=== PATIENT | female | born 1960 ===

== ENCOUNTER 2016-12-31 18:09 | Inpatient (IN) ==
[2016-12-31] MEDS ORDERED: ASPIRIN 325 MG TABLET PO STA (18:24)
[2016-12-31] MEDS ORDERED: methylPREDNISolone SOD SUC 125 MG/2 ML VIAL IV STA (18:27)
[2016-12-31] MEDS ORDERED: KETOROLAC 30 MG/1 ML VIAL IV STA (18:27)
[2016-12-31] MEDS ORDERED: ONDANSETRON 4 MG/2 ML VIAL IV STA (18:27)
[2016-12-31] MEDS ORDERED: ALBUTEROL/IPRATROPIUM 3 ML NEB RESP TX STA (18:27)
[2016-12-31] MEDS ORDERED: LEVOFLOXACIN INJ 750 MG in PREMIX 1 EACH IV STA (18:27)
--- NOTE | 2016-12-31 18:29 | EKG Report ---
Stationary ECG Study [facility] ER Test Date: 12/31/2016 6:20:29 PM Pat Name: MEHRAN DOWLING Department: Room: 540 Gender: F Auto Body Painter: : 1960 Requested by: Jared Bustillos Order Number: [id number] Reading MD: PALOMA HARE Intervals [place] Rate: 70 P: 35 UT: 158 QRS: 5 QRSD: 75 T: 38 QT: 427 QTc: 448 Interpretive Statements SINUS RHYTHM Electronically Signed On 01-01-17 18:59:58 CDT by PALOMA HARE [email or web address]
[2016-12-31] MEDS ORDERED: KETOROLAC 30 MG/1 ML VIAL ONE (18:33)
[2016-12-31] MEDS ORDERED: ASPIRIN 325 MG TABLET ONE (18:33)
[2016-12-31] MEDS ORDERED: methylPREDNISolone SOD SUC 125 MG/2 ML VIAL ONE (18:33)
[2016-12-31] MEDS ORDERED: ONDANSETRON 4 MG/2 ML VIAL ONE (18:33)
--- NOTE | 2016-12-31 18:35 | Emergency Department Note ---
Arrival - Arrival Chief Complaint: Upper Respiratory ED Nursing Triage Note: pt was dx with pneumonia and flu yesterday. pt went to [facility] today c/o cough and pain in chest Mode of Arrival: Stretcher Limitations: No Limitations Source: Patient Time Seen by Provider: 12/31/16 18:23 - History of Present Illness HPI Narrative: This 56-year-old female was transferred from [facility] for further evaluation of persistent respiratory complaints after being diagnosed with pneumonia and flu yesterday. Because of the lack of laboratory machines functioning she was transferred here for completion of workup. The patient states she never filled the medication given her yesterday when she had the diagnoses made. She currently complains of body aches, headache, subjective chills and fever, and intermittent dry cough. She denies nausea, vomiting, shortness of breath, chest pain, or purulence. She is in no acute medical distress at this time. Onset (ago): day(s) (This patient presents 2 days post onset of symptoms.) Consistency: constant Severity: moderate Allergies/Adverse Reactions: Allergies Allergy/AdvReac Type Severity Reaction Status Date / Time Penicillins Allergy Mild RASH Verified 12/30/15 12:33 Home Medications: Home Medications Medication Instructions Recorded Confirmed Type Furosemide Tab [Lasix Tab] 40 mg PO DAILY #30 tablet 12/22/15 12/31/16 Rx Spironolactone [Aldactone] 25 mg PO BID #60 tablet 12/22/15 12/31/16 Rx Bismuth Subsalicylate Liquid 30 ml PO Q4H 05/06/16 12/31/16 History [Pepto Bismol Liquid] Ondansetron Tab [Zofran Tab] 4 mg PO Q4-6H PRN 05/06/16 12/31/16 History predniSONE TAB [PredniSONE] 10 mg PO DAILY 05/06/16 12/31/16 History Azithromycin Liquid [Zithromax 6.5 ml PO DAILY 12/31/16 12/31/16 History Liquid] Insulin Detemir [Levemir] 0 unit SUBCUT DAILY PRN 12/31/16 12/31/16 History Oseltamivir Cap [Tamiflu Cap] 75 mg PO BID 12/31/16 12/31/16 History Pantoprazole Tab [Protonix Tab] 40 mg PO AC SUPPER 12/31/16 12/31/16 History Potassium Chloride Cap/Tab [K Dur] 20 meq PO BID 12/31/16 12/31/16 History Review of System - Review of System 12 point system: reviewed and no additional remarkable complaints except as stated - Review of System Constitutional: Present: as per HPI Respiratory: Present: as per HPI Cardiovascular: Present: as per HPI Gastrointestinal: Present: as per HPI Musculoskeletal: Present: as per HPI Medical,Surgical,& Family Hx - Medical History Cardio: History of: Hypertension Comment Only: Cardiovascular Problems (denies any) Neurology: No history of: Brain Aneurysm, Cerebrovascular Accident, Migraine, Seizures Endocrine: No history of: Diabetes Mellitus (NIDDM) Respiratory: No history of: Respiratory Problems (denies) Gastrointestinal: No history of: Bowel Obstruction Musculoskeletal: History of: Back/Neck Problems, Musculoskeletal Problems (back surgery) - Surgical History Cardiac Surgeries: Patient Denies: Femoral-Popliteal Bypass Graft, Cardiac Catheterization, Cardiac Surgery, Carotid Endarterectomy Thoracic Surgeries: Patient denies;: Organ Transplant, Lobectomy Neurologic Surgeries: Patient denies: Brain Aneurysm, Neurologic Surgery HEENT Surgeries: Patient denies: Carotid Endarterectomy, Eye Surgery, Tonsilectomy & Adenoidectomy Abdominal Surgeries: Surgical HX of: Cholecystectomy Reproductive Surgeries: Surgical HX of;: Section (X3), Hysterectomy Patient denies;: Genitourinary Surgery Orthopedic Surgeries: Surgical HX of;: Spinal Surgery (BACK SURGERY X2 OVER 10 YRS AGO) - Family History Family History: Reports;: Family Cancer (MOTHER), Family Diabetes (MOTHER, BROTHER SISTERS) - Social History Smoking Status: Current every day smoker Frequency of Alcohol Use: None Type of Drug Use: None Exam Physical Examination: GENERAL: Well developed, well nourished female in no acute distress. HEENT: Normocephalic. No trauma. Moist mucous membranes. EOMI. PERRLA. ENT: Nasal mucosa erythema and edema NECK: Supple. No adenopathy. CARDIAC: Regular. No murmurs. Heart rate 70 CHEST: Scattered expiratory rhonchi. No respiratory distress. O2 sat 97% ABDOMEN: Soft. Nontender. Active bowel sounds. EXTREMITIES: No trauma. Normal ROM. No pedal edema. SKIN: No diaphoresis. No rash. NEURO: Alert. Neuro intact. No focal deficits. Vital Signs: Vital Signs Temperature 98.3 F 12/31/16 18:13 Pulse Rate 66 12/31/16 18:40 Respiratory Rate 32 H 12/31/16 18:40 Blood Pressure 101/57 12/31/16 18:13 O2 Sat by Pulse Oximetry 100 12/31/16 18:40 Course - Reevaluation(s) Reevaluation #1: Advised patient with her blood counts and evolving chest x-ray she needed hospitalization for further evaluation treatment. - Consultations Consultation #1: Discussed with Dr. Tovar, hospitalist, who will admit for further evaluation treatment Results - Labs CBC & BMP: 12/31/16 18:47 12/31/16 18:47 Labs: I reviewed the laboratory noted the leukopenia and thrombocytopenia associated with a mild anemia as well as diffuse mild LFT increases. - Impressions EKG: Sinus rhythm at 70 with normal IL interval and QRS duration. Normal STDs. Normal EKG. - Diagnostic Findings Procedure: Chest x-ray: image reviewed by me, report reviewed by me (Large right -sided pneumonia beginning to fluff out) Disposition Clinical Impression: Right chest pneumonia, Leukopenia, Thrombocytopenia Case discussed with: patient Disposition: Still a Patient Condition: Guarded Time of Disposition: 19:47
--- NOTE | 2016-12-31 18:54 | XRay Report ---
History is chest pain Comparison 12/31/2016 Heart and vessels are mildly enlarged There are mildly increasing reticular nodular and hazy bilateral pulmonary opacities mildly more pronounced on the right No more focal consolidation is seen Impression: Mildly increasing right greater than left infiltrates versus asymmetric edema PROCEDURE INTERPRETED AT [facility] DEPARTMENT OF RADIOLOGY Final Report Signed by: Dr. Afia Law
[2016-12-31 18:56] LABS: Hematocrit 36.2 VOL% (35.7-47.0); Hemoglobin 12.8 GM/DL (12.0-16.0); Immature Granulocytes % 0.9 %; Immature Granulocytes Absolute 0.02 #; Lymphocytes # 0.8 10*3/uL (1.4-4.0); Lymphocytes % 39.3 % (21.3-54.2); Mean Corpuscular HGB Conc 35.4 GM/DL (32-36); Mean Corpuscular Hemoglobin 34 PG (27-34); Mean Corpuscular Volume 94.8 FL (87-102); Mean Platelet Volume 12.5 FL (9.6-12.0); Monocytes # 0.3 10*3/uL (0.11-0.8); Monocytes % 11.7 % (1.7-12.7); Neutrophils % 48.1 % (38.7-73.9); Red Blood Count 3.82 MC/CUMM (3.8-5.5); Red Cell Distribution Width 14.1 % (9.3-17.3); White Blood Count 2.1 T/CUMM (4-12)
[2016-12-31 19:02] LABS: Platelet Count 33 T/CUMM (130-400)
[2016-12-31 19:07] LABS: INR 1.3; PT Patient Result 13.9 SECS
[2016-12-31 19:32] LABS: Bilirubin,Total 2.6 MG/DL (0.2-1.0); Calcium 7.1 MG/DL (8.5-10.1); Osmolality,Calculated 276.4 MOS/KG (273-304); Potassium 3.4 MMOL/L (3.5-5.1); Thyroid Stimulating Hormone 1.32 uIU/ml (0.358-3.74); Total Protein 5.1 G/DL (6.4-8.3); Troponin I Only 0.034 NG/ML (0.00-0.045)
[2016-12-31] MEDS ORDERED: SODIUM CHLORIDE 0.9% 1,000 ML IV ONE (19:53)
--- NOTE | 2016-12-31 19:58 | Hospitalist History & Physical ---
Assessment and Plan - Time spent with patient Time spent with patient: Greater than 30 minutes (1) Sepsis Status: Acute Assessment and plan: She does meet criteria for sepsis at this time with community-acquired pneumonia and she meets to systemic inflammatory response syndrome criteria ( respirations 32, white blood count less than 4000). Will treat her underlying infection and obtain a lactic acid level. There is no other evidence of new endorgan involvement. Current Visit: Yes (2) Community acquired pneumonia Status: Acute Assessment and plan: Patient has community-acquired pneumonia which is likely bacterial in nature. She will be cultured and placed on empiric IV antibiotics. She will receive O2 supplementation and DuoNeb therapy. Current Visit: Yes (3) Influenza Status: Acute Assessment and plan: She was recently diagnosed with influenza and prescribed Tamiflu. I do not have those records but she has not been taking those. Will reinitiate Tamiflu therapy at this time. Current Visit: Yes (4) Thrombocytopenia Status: Chronic Assessment and plan: Patient is thrombocytopenic and leukopenic but has a history of cirrhosis. I do not have access to any prior labs but she is having no active bleeding at this time. We will provide mechanical DVT prophylaxis and avoid pharmacologic measures. We will follow-up CBC in the a.m. Current Visit: No (5) Non-alcoholic cirrhosis Status: Chronic Assessment and plan: Patient has history of nonalcoholic cirrhosis. Will continue her current medical regimen. Current Visit: No (6) Hypokalemia Status: Acute Assessment and plan: She received potassium replacement this evening and follow-up electrolytes and renal function in the a.m. Current Visit: No History of Present Illness Chief complaint: Fever, cough History of present illness: Ms. Marquez is a 56 year old female who states she has had about a 2 day history of fever, chills, body aches, cough productive of minimal phlegm and increasing shortness of breath. She has had some mild nausea but no vomiting. She has had some loose nonbloody stool. She was apparently seen and diagnosed with influenza and pneumonia and treated with Tamiflu and Levaquin as an outpatient but apparently did not get those filled. She denies any melena, hematochezia, hematemesis, dysuria, hematuria, abnormal bleeding or bruising. She was seen at [facility] today where she received IV Levaquin and transferred to [facility]. Primary care provider is [facility]. She is seeing Dr. Rodney Su in the past for her cirrhosis. Home Medications Medication Instructions Recorded Confirmed Type Furosemide Tab [Lasix Tab] 40 mg PO DAILY #30 tablet 12/22/15 12/31/16 Rx Spironolactone [Aldactone] 25 mg PO BID #60 tablet 12/22/15 12/31/16 Rx Bismuth Subsalicylate Liquid 30 ml PO Q4H 05/06/16 12/31/16 History [Pepto Bismol Liquid] Ondansetron Tab [Zofran Tab] 4 mg PO Q4-6H PRN 05/06/16 12/31/16 History predniSONE TAB [PredniSONE] 10 mg PO DAILY 05/06/16 12/31/16 History Azithromycin Liquid [Zithromax 6.5 ml PO DAILY 12/31/16 12/31/16 History Liquid] Insulin Detemir [Levemir] 0 unit SUBCUT DAILY PRN 12/31/16 12/31/16 History Oseltamivir Cap [Tamiflu Cap] 75 mg PO BID 12/31/16 12/31/16 History Pantoprazole Tab [Protonix Tab] 40 mg PO AC SUPPER 12/31/16 12/31/16 History Potassium Chloride Cap/Tab [K Dur] 20 meq PO BID 12/31/16 12/31/16 History Allergies Allergy/AdvReac Type Severity Reaction Status Date / Time Penicillins Allergy Mild RASH Verified 12/30/15 12:33 Medical,Surgical,& Family Hx - Medical History Cardio: History of: Hypertension Comment Only: Cardiovascular Problems (denies any) Neurology: No history of: Brain Aneurysm, Cerebrovascular Accident, Migraine, Seizures Endocrine: No history of: Diabetes Mellitus (NIDDM) Respiratory: No history of: Respiratory Problems (denies) Gastrointestinal: History of: Liver Problems (She states she has cirrhosis of the liver related to some pain medication s) No history of: Bowel Obstruction Musculoskeletal: History of: Back/Neck Problems, Musculoskeletal Problems (back surgery) - Surgical History Cardiac Surgeries: Patient Denies: Femoral-Popliteal Bypass Graft, Cardiac Catheterization, Cardiac Surgery, Carotid Endarterectomy Thoracic Surgeries: Patient denies;: Organ Transplant, Lobectomy Neurologic Surgeries: Patient denies: Brain Aneurysm, Neurologic Surgery HEENT Surgeries: Patient denies: Carotid Endarterectomy, Eye Surgery, Tonsilectomy & Adenoidectomy Abdominal Surgeries: Surgical HX of: Cholecystectomy Reproductive Surgeries: Surgical HX of;: Section (X3), Hysterectomy Patient denies;: Genitourinary Surgery Orthopedic Surgeries: Surgical HX of;: Spinal Surgery (BACK SURGERY X2 OVER 10 YRS AGO) - Family History Family History: Reports;: Family Cancer (MOTHER), Family Diabetes (MOTHER, BROTHER SISTERS) - Social History Smoking Status: Current every day smoker Have you smoked in the last 12 months: Yes Time spent discussing smoking cessation with patient: 3 to 10 minutes Frequency of Alcohol Use: None Type of Drug Use: None 12 point system: reviewed and no additional remarkable complaints except as stated Exam - Constitutional Vitals: Period Temp Pulse Resp BP Sys/Dominguez Pulse Ox Last 24 Hr 98.3 F-98.3 F 66-72 18-32 101-101/57-57 95-100 General appearance: no acute distress - Head Head exam: Present: normocephalic, atraumatic - Eye Eye exam: Present: EOMI. Absent: scleral icterus Pupils: Present: TAYLOR - ENT ENT exam: Present: normal oropharynx - Neck Neck exam: Absent: lymphadenopathy, meningismus, tenderness, thyromegaly - Respiratory Respiratory exam: Present: rales (Few basilar rales greater on the left). Absent: accessory muscle use, chest wall tenderness, rhonchi, wheezes - Cardiovascular Cardiovascular exam: Present: regular rate and rhythm. Absent: JVD, systolic murmur, tachycardia - GI/Abdominal GI/Abdominal exam: Present: normal bowel sounds, soft. Absent: distended, mass , tenderness, rebound - Extremities Exam Extremities exam: Absent: calf tenderness, edema - Back Exam Back exam: Present: normal inspection - Neurological Exam Neurological exam: Present: alert, oriented X3, CN II-XII intact. Absent: motor sensory deficit - Psychiatric Psychiatric exam: Present: normal affect, normal mood. Absent: agitated, anxious - Skin Skin exam: Present: warm, dry. Absent: erythema, petechiae, rash Results - Labs CBC & BMP: 12/31/16 18:47 12/31/16 18:47 Lab Results: I have reviewed the past 24 hour labs - EKG EKG shows: sinus rhythm - Diagnostic Findings Procedure: Chest x-ray: report reviewed by me
[2016-12-31] MEDS ORDERED: ONDANSETRON 4 MG/2 ML VIAL IV PRN (20:48)
[2016-12-31] MEDS ORDERED: GLUCAGON 1 MG VIAL IM PRN (20:48)
[2016-12-31] MEDS ORDERED: ALBUTEROL/IPRATROPIUM 3 ML NEB RESP TX PRN (20:48)
[2016-12-31] MEDS ORDERED: DEXTROSE 50% 25 GM/50 ML VIAL IV PRN (20:48)
[2016-12-31] MEDS ORDERED: SODIUM CHLORIDE 0.9% 1,500 ML IV ONE (20:55)
[2016-12-31 21:15] LABS: Band Neutrophils 6 % (0-10); Eosinophils 2 % (0-10); Lymphocytes 37 % (20-55); Metamyelocytes 3 %; Segmented Neutrophils 42 % (50-85); Total Cells Counted 100
[2016-12-31 21:16] LABS: Anisocytosis 1+; Macrocytosis 1+; Platelet Estimate Decreased
[2016-12-31] MEDS: SODIUM CHLORIDE 0.9% 1,000 ML IV SCH (21:29)
[2016-12-31] MEDS: LEVOFLOXACIN INJ 750 MG in PREMIX 1 EACH IV SCH (21:42)
[2016-12-31] MEDS: OSELTAMIVIR 75 MG CAPSULE PO SCH (21:51)
[2016-12-31] MEDS: SPIRONOLACTONE 25 MG TABLET PO SCH (21:52)
[2016-12-31] MEDS: POTASSIUM CHLORIDE 20 MEQ TABLET PO SCH (21:52)
[2016-12-31] MEDS: INSULIN LISPRO 100 UNIT/ML SUBCUT SCH (23:09)
[2017-01-01] MEDS: SODIUM CHLORIDE 0.9% 1,000 ML IV SCH ×3 (04:47→21:20)
[2017-01-01 05:14] LABS: Hematocrit 36.4 VOL% (35.7-47.0); Hemoglobin 12.7 GM/DL (12.0-16.0); Immature Granulocytes % 1.4 %; Immature Granulocytes Absolute 0.01 #; Lymphocytes # 0.2 10*3/uL (1.4-4.0); Lymphocytes % 33.3 % (21.3-54.2); Mean Corpuscular HGB Conc 34.9 GM/DL (32-36); Mean Corpuscular Hemoglobin 34 PG (27-34); Mean Corpuscular Volume 96.8 FL (87-102); Mean Platelet Volume 13.8 FL (9.6-12.0); Monocytes % 4.2 % (1.7-12.7); Neutrophils # 0.4 10*3/uL (1.4-7.4); Neutrophils % 61.1 % (38.7-73.9); Red Blood Count 3.76 MC/CUMM (3.8-5.5); Red Cell Distribution Width 14.2 % (9.3-17.3)
[2017-01-01 05:27] LABS: White Blood Count 0.7 T/CUMM (4-12)
[2017-01-01 05:28] LABS: Platelet Count 26 T/CUMM (130-400)
[2017-01-01 05:45] LABS: Albumin 1.8 G/DL (3.4-5.0); Bilirubin,Total 1.8 MG/DL (0.2-1.0); Calcium 6.8 MG/DL (8.5-10.1); Osmolality,Calculated 287.1 MOS/KG (273-304); Potassium 3.5 MMOL/L (3.5-5.1); Total Protein 4.9 G/DL (6.4-8.3)
[2017-01-01 05:50] LABS: Lymphocytes 33 % (20-55); Platelet Estimate Decreased; Segmented Neutrophils 60 % (50-85); Total Cells Counted 100
[2017-01-01] MEDS: ALBUTEROL/IPRATROPIUM 3 ML NEB RESP TX SCH ×4 (07:30→19:26)
[2017-01-01] MEDS: OSELTAMIVIR 75 MG CAPSULE PO SCH ×2 (08:21→21:19)
[2017-01-01] MEDS: POTASSIUM CHLORIDE 20 MEQ TABLET PO SCH ×2 (08:21→21:18)
[2017-01-01] MEDS: INSULIN LISPRO 100 UNIT/ML SUBCUT SCH ×5 (08:21→21:19)
[2017-01-01] MEDS: predniSONE 10 MG TABLET PO SCH (08:22)
[2017-01-01] MEDS: SPIRONOLACTONE 25 MG TABLET PO SCH ×2 (08:22→21:19)
[2017-01-01] MEDS: FUROSEMIDE 40 MG TABLET PO SCH ×2 (08:25→08:31)
--- NOTE | 2017-01-01 13:36 | Hospitalist Progress Note ---
Assessment and Plan - Time spent with patient Time spent with patient: Greater than 30 minutes (1) Community acquired pneumonia Status: Acute Assessment and plan: Continue antibiotics. No fever. Current Visit: Yes (2) Influenza Status: Acute Assessment and plan: Continue Tamiflu Current Visit: Yes (3) Non-alcoholic cirrhosis Status: Chronic Assessment and plan: With leukocytopenia and thrombocytopenia. Current Visit: No (4) Neutropenia Status: Acute Assessment and plan: Continue neutropenic precautions, likely secondary to cirrhosis. Current Visit: Yes (5) Thrombocytopenia Status: Chronic Assessment and plan: Secondary to cirrhosis. Current Visit: No Hospitalist: Subjective Interval history: No complaints, no overnight events. Currently on neutropenic precautions Exam - Constitutional Vitals: Period Temp Pulse Resp BP Sys/Dominguez Pulse Ox Last 24 Hr 97.3 F-98.4 F 58-74 16-20 90-103/43-58 93-98 General appearance: normal weight, no acute distress - Head Head exam: Present: normocephalic, atraumatic - Eye Eye exam: Present: EOMI Pupils: Present: TAYLOR - ENT ENT exam: Present: normal exam - Neck Neck exam: Present: normal inspection - Respiratory Respiratory exam: Present: rhonchi. Absent: wheezes - Cardiovascular Cardiovascular exam: Present: regular rate and rhythm. Absent: gallop, rubs, systolic murmur - GI/Abdominal GI/Abdominal exam: Present: normal bowel sounds, soft. Absent: distended, firm , guarding, tenderness, rebound - Extremities Exam Extremities exam: Present: normal inspection. Absent: calf tenderness, edema Results - Labs CBC & BMP: 01/01/17 04:24 01/01/17 04:24 Lab Results: I have reviewed the past 24 hour labs Quality Measures - VTE Contraindication to Pharmacological VTE Prophylaxis: Thrombocytopenia Specialty Discharge - Follow Up or Referrals
[2017-01-01] MEDS: PANTOPRAZOLE 40 MG TABLET PO SCH (17:10)
[2017-01-01] MEDS: LEVOFLOXACIN INJ 750 MG in PREMIX 1 EACH IV SCH (21:16)
[2017-01-02] MEDS: ALBUTEROL/IPRATROPIUM 3 ML NEB RESP TX SCH ×4 (00:41→21:05)
[2017-01-02 05:11] LABS: Hematocrit 34.5 VOL% (35.7-47.0); Hemoglobin 11.9 GM/DL (12.0-16.0); Immature Granulocytes Absolute 0.05 #; Lymphocytes # 0.5 10*3/uL (1.4-4.0); Lymphocytes % 9.6 % (21.3-54.2); Mean Corpuscular HGB Conc 34.5 GM/DL (32-36); Mean Corpuscular Hemoglobin 34 PG (27-34); Mean Corpuscular Volume 97.5 FL (87-102); Mean Platelet Volume 12.7 FL (9.6-12.0); Monocytes # 0.4 10*3/uL (0.11-0.8); Monocytes % 6.9 % (1.7-12.7); Neutrophils # 4.3 10*3/uL (1.4-7.4); Neutrophils % 82.5 % (38.7-73.9); Red Blood Count 3.54 MC/CUMM (3.8-5.5); Red Cell Distribution Width 14.2 % (9.3-17.3); White Blood Count 5.2 T/CUMM (4-12)
[2017-01-02 05:15] LABS: Platelet Count 28 T/CUMM (130-400)
[2017-01-02] MEDS: SODIUM CHLORIDE 0.9% 1,000 ML IV SCH ×2 (05:47→16:59)
[2017-01-02 05:48] LABS: Calcium 7.3 MG/DL (8.5-10.1); Osmolality,Calculated 290.7 MOS/KG (273-304); Potassium 3.6 MMOL/L (3.5-5.1)
[2017-01-02 05:59] LABS: Band Neutrophils 1 % (0-10); Lymphocytes 3 % (20-55); Segmented Neutrophils 93 % (50-85)
[2017-01-02 06:01] LABS: Burr Cells 1+; Platelet Estimate Decreased
[2017-01-02 06:02] LABS: Total Cells Counted 100
[2017-01-02] MEDS: INSULIN LISPRO 100 UNIT/ML SUBCUT SCH ×4 (08:02→20:47)
[2017-01-02] MEDS: SPIRONOLACTONE 25 MG TABLET PO SCH ×2 (08:22→20:46)
[2017-01-02] MEDS: predniSONE 10 MG TABLET PO SCH (08:22)
[2017-01-02] MEDS: POTASSIUM CHLORIDE 20 MEQ TABLET PO SCH ×2 (08:22→20:46)
[2017-01-02] MEDS: OSELTAMIVIR 75 MG CAPSULE PO SCH ×2 (08:23→20:46)
[2017-01-02] MEDS: FUROSEMIDE 40 MG TABLET PO SCH (08:23)
[2017-01-02] MEDS ORDERED: VANCOMYCIN INJ 1,000 MG in SODIUM CHLORIDE 0.9% 250 ML IV SCH (08:30)
[2017-01-02] MEDS: VANCOMYCIN INJ 1,000 MG in SODIUM CHLORIDE 0.9% 250 ML IV SCH (09:34)
--- NOTE | 2017-01-02 10:05 | Hospitalist Progress Note ---
Assessment and Plan - Time spent with patient Time spent with patient: Greater than 30 minutes (1) Community acquired pneumonia Status: Acute Assessment and plan: Continue antibiotics. No fever. Current Visit: Yes (2) Influenza Status: Acute Assessment and plan: Continue Tamiflu Current Visit: Yes (3) Non-alcoholic cirrhosis Status: Chronic Assessment and plan: Stable. Current Visit: No (4) Neutropenia Status: Acute Assessment and plan: Resolved. Current Visit: Yes (5) Thrombocytopenia Status: Chronic Assessment and plan: Secondary to cirrhosis. Stable. Current Visit: No Hospitalist: Subjective Interval history: Patient has no complaints currently. Exam - Constitutional Vitals: Period Temp Pulse Resp BP Sys/Dominguez Pulse Ox Last 24 Hr 97.4 F-98.0 F 61-93 16-20 98-135/46-61 93-98 General appearance: no acute distress - Head Head exam: Present: normocephalic, atraumatic - Eye Eye exam: Present: EOMI Pupils: Present: TAYLOR - ENT ENT exam: Present: normal exam - Neck Neck exam: Present: normal inspection - Respiratory Respiratory exam: Present: rhonchi. Absent: wheezes - Cardiovascular Cardiovascular exam: Present: regular rate and rhythm. Absent: gallop, rubs, systolic murmur - GI/Abdominal GI/Abdominal exam: Present: normal bowel sounds, soft. Absent: distended, firm , guarding, tenderness, rebound - Extremities Exam Extremities exam: Present: normal inspection. Absent: calf tenderness, edema Results - Labs CBC & BMP: 01/02/17 04:32 01/02/17 04:32 Lab Results: I have reviewed the past 24 hour labs Quality Measures - VTE Contraindication to Pharmacological VTE Prophylaxis: Thrombocytopenia Specialty Discharge - Follow Up or Referrals
[2017-01-02 10:20] LABS: Apearance,Urine Slightly Hazy (Clear); Bilirubin,Urine Negative (Negative); Blood, Urine Negative (Negative); Glucose,Urine (UA) Negative (Negative); Ketones,Urine Negative (Negative); Nitrite,Urine Negative (Negative); Protein,Urine Negative; RBC,Urine 1 /HPF (0-4); Squamous Epithelial Cell,Urine Occasional /HPF (0-10); Urine Color Yellow (Yellow); Urine Specific Gravity 1.014 (1.001-1.035); Urine Urobilinogen < 2.0 EU/DL (0.2-1.0); WBC,Urine 2 /HPF (0-6)
[2017-01-02] MEDS: PANTOPRAZOLE 40 MG TABLET PO SCH (16:59)
[2017-01-02] MEDS: LEVOFLOXACIN INJ 750 MG in PREMIX 1 EACH IV SCH (20:43)
[2017-01-03] MEDS: ALBUTEROL/IPRATROPIUM 3 ML NEB RESP TX SCH ×3 (00:54→12:30)
[2017-01-03] MEDS: SODIUM CHLORIDE 0.9% 1,000 ML IV SCH ×2 (01:17→10:31)
[2017-01-03 06:41] LABS: Hematocrit 32.1 VOL% (35.7-47.0); Hemoglobin 11.1 GM/DL (12.0-16.0); White Blood Count 4.9 T/CUMM (4-12)
[2017-01-03 06:42] LABS: Basophils % 0.2 % (0.0-0.8); Immature Granulocytes % 1.6 %; Immature Granulocytes Absolute 0.08 #; Lymphocytes # 0.9 10*3/uL (1.4-4.0); Lymphocytes % 18.4 % (21.3-54.2); Mean Corpuscular HGB Conc 34.6 GM/DL (32-36); Mean Corpuscular Hemoglobin 34 PG (27-34); Mean Corpuscular Volume 97.3 FL (87-102); Mean Platelet Volume 13.7 FL (9.6-12.0); Monocytes # 0.4 10*3/uL (0.11-0.8); Monocytes % 7.6 % (1.7-12.7); Neutrophils # 3.5 10*3/uL (1.4-7.4); Neutrophils % 72.2 % (38.7-73.9); Red Cell Distribution Width 14.6 % (9.3-17.3)
[2017-01-03 06:55] LABS: Platelet Count 24 T/CUMM (130-400)
[2017-01-03 07:05] LABS: Band Neutrophils 3 % (0-10); Burr Cells 2+; Lymphocytes 5 % (20-55); Platelet Estimate Decreased; Segmented Neutrophils 87 % (50-85); Target Cells Slight; Total Cells Counted 100
[2017-01-03 07:07] LABS: Calcium 7.2 MG/DL (8.5-10.1); Osmolality,Calculated 294.1 MOS/KG (273-304); Potassium 3.9 MMOL/L (3.5-5.1)
[2017-01-03] MEDS: INSULIN LISPRO 100 UNIT/ML SUBCUT SCH ×3 (08:43→17:17)
[2017-01-03] MEDS: VANCOMYCIN INJ 1,000 MG in SODIUM CHLORIDE 0.9% 250 ML IV SCH (08:53)
[2017-01-03] MEDS: OSELTAMIVIR 75 MG CAPSULE PO SCH (08:54)
[2017-01-03] MEDS: FUROSEMIDE 40 MG TABLET PO SCH (08:54)
[2017-01-03] MEDS: SPIRONOLACTONE 25 MG TABLET PO SCH (08:54)
[2017-01-03] MEDS: predniSONE 10 MG TABLET PO SCH (08:54)
[2017-01-03] MEDS: POTASSIUM CHLORIDE 20 MEQ TABLET PO SCH (08:54)
--- NOTE | 2017-01-03 09:51 | Physician Query Form ---
CLICK EDIT DOCUMENT TO SELECT QUERY ANSWER --> OK --> SIGN Autumn Hendrickson RN [employer] W) [phone] (f) [phone] [email or web address] PROVIDERS: Make your selection(s) from the choices in EACH section by typing an "x" and enter comments in the comment section. Please use your independent medical judgment in providing your response. This request does not imply that any particular answer is desired or expected. CLINICAL INDICATORS: (Providers should not edit this section) Based on documentation of "neutropenia and thrombocytopenia", WBC=0.7, RBC=3.30 , PLT=24. Based on the above, could you clarify the appropriate diagnosis, if significant , that supports the above abnormalities and additional evaluation, monitoring, and/or treatment rendered: ( ) Pt. has pancytopenia ( x) Pt. does not have pancytopenia ( ) Other, please specify: ( ) Clinically unable to determine COMMENTS: Use of terms such as suspected, likely, or probable (associated with a specific diagnosis that is being evaluated, monitored, or treated as if it exists) are acceptable and can be restated in the discharge summary if not ruled out. MTDD
[2017-01-03] MEDS: PANTOPRAZOLE 40 MG TABLET PO SCH (15:50)
--- NOTE | 2017-01-03 16:09 | Discharge Summary ---
Hospital Course - Hospital Course Hospital Course: Ms. Marquez was admitted for management of pneumonia. She was started on IV Levaquin. She dramatically improved on this regimen and the day prior to discharge she received 1 dose of vancomycin. She however was adamant about being discharged today given that her cousin . I agreed to this and will discharge the patient with Levaquin and clindamycin. She had a positive influenza test outside was initiated on Tamiflu in the hospital. She will continue this as an outpatient. Of note she was found to have neutropenia the day after admission however this resolved the next day. - Time spent with patient Time with patient DS: Greater than 30 minutes Diagnosis - Discharge Diagnosis (1) Community acquired pneumonia Status: Acute (2) Influenza Status: Acute (3) Non-alcoholic cirrhosis Status: Chronic (4) Neutropenia Status: Acute (5) Thrombocytopenia Status: Chronic Specialty Discharge - Follow Up or Referrals Discharge Plan - Discharge Data Disposition: Disch To Home/Self Care Condition at Discharge: Stable Discharge Diet: advance to your usual diet Activity: resume usual activities as tolerated - Discharge Medications New Levofloxacin Tab [Levaquin Tab] 750 mg PO DAILY #6 tablet Clindamycin HCl [Clindamycin Cap] 600 mg PO Q8HR #36 capsule Oseltamivir Cap [Tamiflu Cap] 75 mg PO BID #4 capsule Continue Spironolactone [Aldactone] 25 mg PO BID #60 tablet Furosemide Tab [Lasix Tab] 40 mg PO DAILY #30 tablet Bismuth Subsalicylate Liquid [Pepto Bismol Liquid] 30 ml PO Q4H predniSONE TAB [PredniSONE] 10 mg PO DAILY Ondansetron Tab [Zofran Tab] 4 mg PO Q4-6H PRN PRN Reason: Nausea Azithromycin Liquid [Zithromax Liquid] 6.5 ml PO DAILY Oseltamivir Cap [Tamiflu Cap] 75 mg PO BID Potassium Chloride Cap/Tab [K Dur] 20 meq PO BID Pantoprazole Tab [Protonix Tab] 40 mg PO AC SUPPER Insulin Detemir [Levemir] 0 unit SUBCUT DAILY PRN PRN Reason: SLIDING SCALE - Follow Up or Referral - Forms/Instructions Instructions: Influenza (DC), Sepsis (DC), Community-acquired Pneumonia (DC), Neutropenic Precautions (GEN) Exam - Constitutional Vitals: Period Temp Pulse Resp BP Sys/Dominguez Pulse Ox Last 24 Hr 97.6 F-97.9 F 68-89 16-20 93-105/45-58 94-99 General appearance: normal weight, no acute distress - Head Head exam: Present: normal inspection, normocephalic, atraumatic - Eye Eye exam: Present: EOMI Pupils: Present: TAYLOR - ENT ENT exam: Present: normal exam - Neck Neck exam: Present: normal inspection - Respiratory Respiratory exam: Present: clear to auscultation bilaterally - Cardiovascular Cardiovascular exam: Present: regular rate and rhythm - GI/Abdominal GI/Abdominal exam: Present: normal bowel sounds - Extremities Exam Extremities exam: Present: normal inspection Discharge Results Procedures and tests throughout hospitalization: Pending Orders 01/04/17 08:30 Vancomycin,Trough Timed Labs on day of discharge: Labs from last 24 hours 01/03/17 01/03/17 01/03/17 10:47 07:17 05:07 WBC RBC Hgb Hct MCV MCH MCHC RDW Plt Count MPV Neut % (Auto) Lymph % (Auto) [place] % (Auto) Eos % (Auto) Baso % (Auto) Neut # (Auto) Lymph # (Auto) [place] # (Auto) Eos # (Auto) Baso # (Auto) Total Counted Immature Gran % Nucleated RBC % Immature Gran # Segmented Neutrophils Band Neutrophils Lymphocytes Monocytes Nucleated RBCs # Platelet Estimate Target Cells [place] Cells Sodium 149 H Potassium 3.9 Chloride 121 H Carbon Dioxide 17 L Anion Gap 14.9 BUN 12 Creatinine 1.00 GFR Calculation 64 BUN/Creatinine Ratio 12.00 Glucose 77 POC Glucose 87 75 Calculated Osmolality 294.1 Calcium 7.2 L 01/03/17 01/02/17 01/02/17 05:07 20:13 17:33 WBC 4.9 RBC 3.30 L Hgb 11.1 L Hct 32.1 L MCV 97.3 MCH 34 MCHC 34.6 RDW 14.6 Plt Count 24 L* MPV 13.7 H Neut % (Auto) 72.2 Lymph % (Auto) 18.4 L [place] % (Auto) 7.6 Eos % (Auto) 0.0 Baso % (Auto) 0.2 Neut # (Auto) 3.5 Lymph # (Auto) 0.9 L [place] # (Auto) 0.4 Eos # (Auto) 0.0 Baso # (Auto) 0.0 Total Counted 100 Immature Gran % 1.6 Nucleated RBC % 0.0 Immature Gran # 0.08 Segmented Neutrophils 87 H Band Neutrophils 3 Lymphocytes 5 L Monocytes 5 Nucleated RBCs # 0.00 Platelet Estimate Decreased Target Cells Slight [place] Cells 2+ Sodium Potassium Chloride Carbon Dioxide Anion Gap BUN Creatinine GFR Calculation BUN/Creatinine Ratio Glucose POC Glucose 165 H 171 H Calculated Osmolality Calcium 01/02/17 16:23 WBC RBC Hgb Hct MCV MCH MCHC RDW Plt Count MPV Neut % (Auto) Lymph % (Auto) [place] % (Auto) Eos % (Auto) Baso % (Auto) Neut # (Auto) Lymph # (Auto) [place] # (Auto) Eos # (Auto) Baso # (Auto) Total Counted Immature Gran % Nucleated RBC % Immature Gran # Segmented Neutrophils Band Neutrophils Lymphocytes Monocytes Nucleated RBCs # Platelet Estimate Target Cells [place] Cells Sodium Potassium Chloride Carbon Dioxide Anion Gap BUN Creatinine GFR Calculation BUN/Creatinine Ratio Glucose POC Glucose 145 H Calculated Osmolality Calcium DS: Provider Date of admission: 12/31/16 19:50 Primary care physician: Dante Douglas MD Attending physician on admission: Maty Borjas MD Consults: 12/31/16 20:58 Consult to Pharmacy [CONS] Routine Reason for Pharmacy Consult: Adjust Meds Renal Funct 01/02/17 08:04 Consult to Pharmacy [CONS] Routine Reason for Pharmacy Consult: Dose/Manage Vancomycin Discharging clinician: Maty Borjas MD Expected date of discharge: 01/03/17
[2017-01-03 17:41] VITALS: BP 114/60
[2017-01-03] MEDS ORDERED: VANCOMYCIN INJ 1,000 MG in SODIUM CHLORIDE 0.9% 250 ML IV SCH (21:00)
== END 2017-01-03 18:15 | disposition home or self-care (01) | DRG 871 ==
LOC: EDBD → EDUNIT# → N.ED 18:09 → N.EDINP 19:50 → N.5E 20:07
PROVIDERS: ADMIT Internal Medicine; ATTEND Internal Medicine

== ENCOUNTER 2017-05-07 17:30 | Inpatient (IN) ==
[2017-05-07 18:30] LABS: Basophils % 0.5 % (0.0-0.8); Eosinophils # 0.2 10*3/uL (0.0-0.87); Eosinophils % 4.1 % (0.00-10.9); Hematocrit 32.5 VOL% (35.7-47.0); Hemoglobin 11.3 GM/DL (12.0-16.0); Immature Granulocytes % 1.4 %; Immature Granulocytes Absolute 0.05 #; Lymphocytes # 1.2 10*3/uL (1.4-4.0); Lymphocytes % 33.8 % (21.3-54.2); Mean Corpuscular HGB Conc 34.8 GM/DL (32-36); Mean Corpuscular Hemoglobin 34 PG (27-34); Mean Corpuscular Volume 96.7 FL (87-102); Monocytes # 0.4 10*3/uL (0.11-0.8); Monocytes % 10.2 % (1.7-12.7); Neutrophils # 1.8 10*3/uL (1.4-7.4); Platelet Count 81 T/CUMM (130-400); Red Blood Count 3.36 MC/CUMM (3.8-5.5); Red Cell Distribution Width 15.8 % (9.3-17.3); White Blood Count 3.6 T/CUMM (4-12)
[2017-05-07 18:58] LABS: Albumin 1.5 G/DL (3.4-5.0); Bilirubin,Total 0.9 MG/DL (0.2-1.0); Calcium 7.3 MG/DL (8.5-10.1); Free T4 (Free Thyroxine) 1.37 NG/DL (0.76-1.46); Potassium 3.4 MMOL/L (3.5-5.1); Thyroid Stimulating Hormone 2.27 uIU/ml (0.358-3.74); Total Protein 6.5 G/DL (6.4-8.3)
--- NOTE | 2017-05-07 19:07 | Ultrasound Report ---
US venous doppler LE RT Indication: Right lower extremity pain and swelling. Comparison: None. Technique: Using transcutaneous probe, color Doppler, spectral Doppler, and grayscale images prior to and following compression were obtained of the right lower extremity. Ultrasound images were captured and stored. Interrogated venous structures include the right common femoral vein, superficial femoral vein (proximal, mid, and distal), and popliteal vein. Findings: There is no evidence of thrombus within the interrogated right lower extremity venous structures. Spectral flow and color flow are present within the interrogated venous segments. Impression: 1. No evidence of venous thrombosis. 05/07/2017 7:03 PM PROCEDURE INTERPRETED AT [facility] DEPARTMENT OF RADIOLOGY Final Report Signed by: Dr. Phoenix Ferrera
--- NOTE | 2017-05-07 19:32 | Emergency Department Note ---
Adryan Ortiz Jamie, am scribing for, and in the presence of, Jimmy Murillo DO 18 :19. Chidi Ortiz John, DO, personally performed the services described in this documentation, ascribed by Marco Antonio Cornelius in my presence, and it is both accurate and complete 930 . Arrival - Arrival Chief Complaint: Extremity Problem Stated Complaint: Legs Hurting ED Nursing Triage Note: C/O Being sent from [facility] for further evaluation of right leg pain and right leg edema, patient is poor historian, Mode of Arrival: Ambulatory Limitations: No Limitations Source: Patient, RN Notes Reviewed Time Seen by Provider: 05/07/17 17:59 - History of Present Illness HPI Narrative: Patient is a 57 y/o female transferred from [facility] for evaluation of edema to right lower extremity. Patient states sxs have been ongoing for awhile and will not improve. ROS and HPI is limited due to patient being a poor historian. Onset (ago): week(s) Consistency: constant Severity: moderate Allergies/Adverse Reactions: Allergies Allergy/AdvReac Type Severity Reaction Status Date / Time Penicillins Allergy Mild RASH Verified 05/07/17 17:38 Home Medications: Home Medications Medication Instructions Recorded Confirmed Type Furosemide Tab [Lasix Tab] 40 mg PO DAILY #30 tablet 12/22/15 03/25/17 Rx Spironolactone [Aldactone] 25 mg PO BID #60 tablet 12/22/15 03/25/17 Rx Pantoprazole Tab [Protonix Tab] 40 mg PO AC SUPPER 12/31/16 03/25/17 History Potassium Chloride Cap/Tab [K Dur] 20 meq PO BID 12/31/16 03/25/17 History Ibuprofen Tab [Motrin Tab] 800 mg PO TID #20 tablet 03/26/17 Rx Review of System - Review of System 12 point system: reviewed and no additional remarkable complaints except as stated - Review of System Constitutional: Absent: chills, diaphoresis, fever, weakness Eyes: Absent: vision change Respiratory: Absent: cough, respiratory distress Cardiovascular: Absent: chest pain, dyspnea on exertion Gastrointestinal: Absent: abdominal pain, nausea, vomiting, diarrhea, constipation Musculoskeletal: Present: joint swelling (Right leg). Absent: arm pain, back pain, leg pain Skin: Absent: rash, change in color Neurological: Absent: headache, weakness, numbness Hematological/Lymphatic: Absent: easy bleeding, easy bruising Medical,Surgical,& Family Hx - Medical History Cardio: History of: Hypertension Comment Only: Cardiovascular Problems (denies any) Neurology: No history of: Brain Aneurysm, Cerebrovascular Accident, Migraine, Seizures Endocrine: No history of: Diabetes Mellitus (NIDDM) Respiratory: No history of: Respiratory Problems (denies) Gastrointestinal: No history of: Bowel Obstruction Musculoskeletal: History of: Back/Neck Problems, Musculoskeletal Problems (back surgery) - Surgical History Cardiac Surgeries: Patient Denies: Femoral-Popliteal Bypass Graft, Cardiac Catheterization, Cardiac Surgery, Carotid Endarterectomy Thoracic Surgeries: Patient denies;: Organ Transplant, Lobectomy Neurologic Surgeries: Patient denies: Brain Aneurysm, Neurologic Surgery HEENT Surgeries: Patient denies: Carotid Endarterectomy, Eye Surgery, Tonsilectomy & Adenoidectomy Abdominal Surgeries: Surgical HX of: Cholecystectomy Reproductive Surgeries: Surgical HX of;: Section (X3), Hysterectomy Patient denies;: Genitourinary Surgery Orthopedic Surgeries: Surgical HX of;: Spinal Surgery (BACK SURGERY X2 OVER 10 YRS AGO) - Family History Family History: Reports;: Family Cancer (MOTHER), Family Diabetes (MOTHER, BROTHER SISTERS) - Social History Smoking Status: Smoker, status unknown Frequency of Alcohol Use: None Type of Drug Use: None Exam Vital Signs: Vital Signs Temperature 97.8 F 05/07/17 17:55 Pulse Rate 61 05/07/17 17:55 Respiratory Rate 16 05/07/17 17:55 Blood Pressure 113/57 05/07/17 17:55 O2 Sat by Pulse Oximetry 97 05/07/17 17:34 - General General appearance: alert, in no apparent distress - Head Head exam: Present: atraumatic, normocephalic, normal inspection - Eye Eye exam: Present: normal appearance, PERRL, EOMI - ENT ENT exam: Present: normal exam, normal oropharynx, mucous membranes moist - Neck Neck exam: Present: normal inspection, full ROM - Chest Chest inspection: Present: normal inspection, symmetric chest wall rise - Respiratory Respiratory exam: Present: normal lung sounds bilaterally - Cardiovascular Cardiovascular exam: Present: regular rate, normal rhythm, normal heart sounds - Abdominal Exam Abdominal exam: Present: soft, normal bowel sounds - Extremities Exam Extremities exam: Present: pedal edema (2 plus right lower extremity), joint swelling - Neurological Exam Neurological exam: Present: alert, oriented X3, CN II-XII intact, reflexes normal - Psychiatric Psychiatric exam: Present: normal affect, normal mood - Skin Skin exam: Present: warm, dry, intact, normal color Course Course Narrative: Pt with mildly low H/H and a D-dimer of 15.1. Discussed with Hospitalist (Dr. Tovar). Will see pt and admit. Results - Labs CBC & BMP: 05/07/17 18:19 05/07/17 18:19 Disposition Clinical Impression: Lower extremity edema Case discussed with: patient, other (Dr. Tovar (hospitalist)) Disposition: Still a Patient
--- NOTE | 2017-05-07 19:44 | Hospitalist History & Physical ---
Assessment and Plan (1) Lower extremity edema Status: Acute Assessment and plan: The patient presents to the hospital with right lower extremity edema. ultrasound of the right lower extremity does not reveal deep vein thrombosis. The patient has previous history of cirrhotic liver disease and this most likely represents a manifestation of her cirrhotic condition. Alternatively, the patient might have obstruction of the right venous blood flow due to lymphadenopathy or tumor. I am going to request CT scan of abdomen and pelvis to evaluate for a venous obstructing mass. The patient will have gentle diuresis in the meantime to improve her symptoms. Current Visit: Yes (2) DM2 (diabetes mellitus, type 2) Status: Chronic Current Visit: Yes Qualifiers: Diabetes mellitus complication status: with circulatory complication Diabetes mellitus complication detail: with other circulatory complications Diabetes mellitus skilled nursing insulin use: without skilled nursing use Qualified Code( s): E11.59 - Type 2 diabetes mellitus with other circulatory complications (3) Non-alcoholic cirrhosis Status: Chronic Current Visit: No History of Present Illness Chief complaint: Right leg swelling History of present illness: Ms. Marquez is a 57 year old female with history of diabetes mellitus type 2, at least one episode of acute alcoholic pancreatitis, and diagnosis of autoimmune hepatitis in the past. The patient is transferred from [facility] after she presented there with right lower extremity greater than left lower extremity swelling. The patient states that she has had such unilateral swelling in the past when her hepatitis had been active. The patient has not been having hepatitis symptoms such as jaundice recently. The patient is not on any active treatment for the autoimmune disease. Ultrasound of the lower extremity did not reveal any deep vein thrombosis. The patient swelling has occurred over the last 5 days. The swelling is moderate, continuous, and worsening. The pain. Swelling has not been associated with fever, chills, wound. Home Medications Medication Instructions Recorded Confirmed Type Furosemide Tab [Lasix Tab] 40 mg PO DAILY #30 tablet 12/22/15 03/25/17 Rx Spironolactone [Aldactone] 25 mg PO BID #60 tablet 12/22/15 03/25/17 Rx Pantoprazole Tab [Protonix Tab] 40 mg PO AC SUPPER 12/31/16 03/25/17 History Potassium Chloride Cap/Tab [K Dur] 20 meq PO BID 12/31/16 03/25/17 History Ibuprofen Tab [Motrin Tab] 800 mg PO TID #20 tablet 03/26/17 Rx Allergies Allergy/AdvReac Type Severity Reaction Status Date / Time Penicillins Allergy Mild RASH Verified 05/07/17 17:38 Medical,Surgical,& Family Hx - Medical History Cardio: History of: Hypertension Comment Only: Cardiovascular Problems (denies any) Neurology: No history of: Brain Aneurysm, Cerebrovascular Accident, Migraine, Seizures Endocrine: No history of: Diabetes Mellitus (NIDDM) Respiratory: No history of: Respiratory Problems (denies) Gastrointestinal: No history of: Bowel Obstruction Musculoskeletal: History of: Back/Neck Problems, Musculoskeletal Problems (back surgery) - Surgical History Cardiac Surgeries: Patient Denies: Femoral-Popliteal Bypass Graft, Cardiac Catheterization, Cardiac Surgery, Carotid Endarterectomy Thoracic Surgeries: Patient denies;: Organ Transplant, Lobectomy Neurologic Surgeries: Patient denies: Brain Aneurysm, Neurologic Surgery HEENT Surgeries: Patient denies: Carotid Endarterectomy, Eye Surgery, Tonsilectomy & Adenoidectomy Abdominal Surgeries: Surgical HX of: Cholecystectomy Reproductive Surgeries: Surgical HX of;: Section (X3), Hysterectomy Patient denies;: Genitourinary Surgery Orthopedic Surgeries: Surgical HX of;: Spinal Surgery (BACK SURGERY X2 OVER 10 YRS AGO) - Family History Family History: Reports;: Family Cancer (MOTHER), Family Diabetes (MOTHER, BROTHER SISTERS) - Social History Smoking Status: Current some day smoker Have you smoked in the last 12 months: Yes Time spent discussing smoking cessation with patient: 3 to 10 minutes (I gave 4 minutes smoking cessation education) Frequency of Alcohol Use: None Type of Drug Use: None Marital Status: Lives With:: Spouse Functional capacity: independent ambulation 12 point system: reviewed and no additional remarkable complaints except as stated Exam - Constitutional Vitals: Period Temp Pulse Resp BP Sys/Dominguez Pulse Ox Last 24 Hr 97.8 F-97.8 F 59-61 16-18 113-157/57-69 97 Exam: Constitutional System: Mild distress. No tremulousness. Head: Normocephalic, atraumatic. Ears, Nose and Throat System: No evidence of Otitis or Mastoiditis. No epistaxis or discharge Eyes System: Pupils equal, round, and reactive. Extraocular muscles intact. Neck: Supple, without adenopathy, No jugular venous distention. No thyromegaly , neck mass, or prior surgery apparent. Respiratory System: Chest clear to auscultation. Cardiovascular System: Heart with regular rate and rhythm. No murmur. GI System: Abdomen soft, nontender. Mild abdominal distention. Normo active bowel sounds present. Musculoskeletal System: limbs with 2+ edema to the thigh on the right-hand side and trace edema to the midcalf on the left Neurological System: No discernable sensory deficit. No aphasia Psychiatric System: Conversation is rational Results - Labs CBC & BMP: 05/07/17 18:19 05/07/17 18:19 Lab Results: I have reviewed the past 24 hour labs
[2017-05-07] MEDS ORDERED: CLORAZEPATE 3.75 MG TABLET PO PRN (22:19)
[2017-05-07] MEDS ORDERED: GLUCAGON 1 MG VIAL IM PRN (22:19)
[2017-05-07] MEDS ORDERED: ACETAMINOPHEN 325 MG TABLET PO PRN (22:19)
[2017-05-07] MEDS ORDERED: ZALEPLON 5 MG CAPSULE PO PRN (22:19)
[2017-05-07] MEDS ORDERED: ONDANSETRON 4 MG/2 ML VIAL IV PRN (22:19)
[2017-05-07] MEDS ORDERED: DEXTROSE 50% 25 GM/50 ML SYRINGE IV PRN (22:19)
[2017-05-07] MEDS: SPIRONOLACTONE 25 MG TABLET PO SCH (23:35)
[2017-05-07] MEDS: POTASSIUM CHLORIDE 20 MEQ TABLET PO SCH (23:36)
[2017-05-07] MEDS: ENOXAPARIN 40 MG/0.4 ML SYRINGE SUBCUT SCH (23:50)
[2017-05-07] MEDS: INSULIN LISPRO 100 UNIT/ML SUBCUT SCH (23:59)
[2017-05-08 03:13] LABS: Calcium 7.4 MG/DL (8.5-10.1); Osmolality,Calculated 282.8 MOS/KG (273-304); Potassium 2.9 MMOL/L (3.5-5.1)
[2017-05-08 04:04] LABS: INR 1.3; PT Patient Result 14.3 SECS
[2017-05-08] MEDS: INSULIN LISPRO 100 UNIT/ML SUBCUT SCH ×4 (08:24→21:10)
[2017-05-08] MEDS: SPIRONOLACTONE 25 MG TABLET PO SCH ×2 (08:55→21:09)
[2017-05-08] MEDS: POTASSIUM CHLORIDE 20 MEQ TABLET PO SCH ×5 (08:55→21:09)
[2017-05-08] MEDS: PANTOPRAZOLE 40 MG TABLET PO SCH (08:55)
[2017-05-08] MEDS: FUROSEMIDE 40 MG TABLET PO SCH (08:55)
--- NOTE | 2017-05-08 09:30 | Hospitalist Progress Note ---
Assessment and Plan (1) Lower extremity edema Status: Acute Assessment and plan: The patient presents to the hospital with right lower extremity edema. ultrasound of the right lower extremity does not reveal deep vein thrombosis. The patient has previous history of cirrhotic liver disease and this most likely represents a manifestation of her cirrhotic condition. Alternatively, the patient might have obstruction of the right venous blood flow due to lymphadenopathy or tumor. I am going to request CT scan of abdomen and pelvis to evaluate for a venous obstructing mass. The patient will have gentle diuresis in the meantime to improve her symptoms. CT interpretation is pending and the test has been completed. I am going to replete potassium today and recheck basic metabolic profile tomorrow. If the patient's leg is improving and there is no evidence of tumor in the abdomen the patient could be discharged home for outpatient follow-up at [facility]. Current Visit: Yes (2) DM2 (diabetes mellitus, type 2) Status: Chronic Current Visit: Yes Qualifiers: Diabetes mellitus complication status: with circulatory complication Diabetes mellitus complication detail: with other circulatory complications Diabetes mellitus half-way insulin use: without half-way use Qualified Code( s): E11.59 - Type 2 diabetes mellitus with other circulatory complications (3) Non-alcoholic cirrhosis Status: Chronic Current Visit: No Hospitalist: Subjective Interval history: The patient was admitted to the hospital yesterday afternoon with unilateral swelling. The patient has right leg swelling and is improving on diuretic therapy. Ultrasound of leg did not reveal any deep vein thrombosis yesterday. CT scan of abdomen has been obtained but report is not yet available. Exam - Constitutional Vitals: Period Temp Pulse Resp BP Sys/Dominguez Pulse Ox Last 24 Hr 97.0 F-98.6 F 53-64 16-18 105-157/45-74 92-97 Exam: Constitutional System: Mild distress. No tremulousness. Head: Normocephalic, atraumatic. Ears, Nose and Throat System: No evidence of Otitis or Mastoiditis. No epistaxis or discharge Eyes System: Pupils equal, round, and reactive. Extraocular muscles intact. Neck: Supple, without adenopathy, No jugular venous distention. No thyromegaly , neck mass, or prior surgery apparent. Respiratory System: Chest clear to auscultation. Cardiovascular System: Heart with regular rate and rhythm. No murmur. GI System: Abdomen soft, nontender. Mild abdominal distention. Normo active bowel sounds present. Musculoskeletal System: limbs with 1+ edema to the thigh on the right-hand side and trace edema to the midcalf on the left Neurological System: No discernable sensory deficit. No aphasia Psychiatric System: Conversation is rational Results - Labs CBC & BMP: 05/07/17 18:19 05/08/17 01:59 Lab Results: I have reviewed the past 24 hour labs
--- NOTE | 2017-05-08 09:45 | CT Report ---
CT abdomen pelvis w con Indication: Right leg swelling. Comparison: None. Technique: CT of the abdomen and pelvis was performed following administration of intravenous contrast. The CT examination was performed using one or more of the following dose reduction techniques: Automatic exposure control, adjustment of the mA and kV according to patient size, or iterative reconstruction techniques. Findings: Groundglass attenuation present bilaterally within the lower lobes and prominent intralobular septal lines within the lower lobes are nonspecific findings and may reflect minimal interstitial pulmonary edema and/or atelectatic change. Infectious process is not entirely excluded. On some images, there appears to be a beaded appearance of the pleural surfaces and other considerations could include sarcoid as well as active granulomatous disease. Heart size is upper limits of normal. Small esophageal varices are suggested at the level of the esophageal hiatus. A small amount of intra-abdominal ascites is demonstrated. The liver demonstrates a nodular margin and is small in size suggesting cirrhosis. There is a focal area of enhancement along the anterior capsular margin of the medial segment left hepatic lobe abutting the fissure for ligamentum teres. This measures approximately a centimeter in greatest dimension and is appears to represent recanalized umbilical vein. Gallbladder surgically absent. Spleen is minimally enlarged. A cleft of the lateral splenic surface is present. The pancreas demonstrates no significant abnormality. The adrenal glands and kidneys demonstrate no acute findings. The aorta and inferior vena cava demonstrate no significant abnormalities. Stomach, duodenum, small bowel, demonstrate no significant abnormalities. The cecum demonstrates nonspecific wall thickening which extends into the hepatic flexure. This may in part reflect lack of distention. Intrapelvic contents demonstrate no acute findings. Small amount ascites is present within the pelvis. Bony structure of the lower chest, lumbar spine, pelvis, proximal femurs demonstrates no significant abnormality. Impression: 1. Cirrhotic features of the liver demonstrated. Ascites demonstrated is small in amount and is favored to reflect sequelae of cirrhosis. Features of portal venous hypertension including esophageal varices and recanalization of the umbilical vein are present. Additionally, mild splenomegaly is present. 2. Nonspecific wall thickening involving the large bowel particularly noticeable in the cecum and ascending colon has differential considerations including lack of distention as well as colitis. 3. The appearance of the lower chest has differential considerations as detailed above. 05/08/2017 9:05 AM PROCEDURE INTERPRETED AT [facility] DEPARTMENT OF RADIOLOGY Final Report Signed by: Dr. Phoenix Ferrera
[2017-05-08] MEDS: ENOXAPARIN 40 MG/0.4 ML SYRINGE SUBCUT SCH (22:40)
[2017-05-09 04:54] LABS: Basophils % 0.5 % (0.0-0.8); Eosinophils # 0.2 10*3/uL (0.0-0.87); Eosinophils % 4.7 % (0.00-10.9); Hematocrit 28.7 VOL% (35.7-47.0); Hemoglobin 9.9 GM/DL (12.0-16.0); Immature Granulocytes % 0.8 %; Immature Granulocytes Absolute 0.03 #; Lymphocytes # 1.3 10*3/uL (1.4-4.0); Lymphocytes % 36.8 % (21.3-54.2); Mean Corpuscular HGB Conc 34.5 GM/DL (32-36); Mean Corpuscular Hemoglobin 34 PG (27-34); Mean Corpuscular Volume 97.3 FL (87-102); Mean Platelet Volume 11.8 FL (9.6-12.0); Monocytes # 0.4 10*3/uL (0.11-0.8); Monocytes % 9.9 % (1.7-12.7); Neutrophils # 1.7 10*3/uL (1.4-7.4); Neutrophils % 47.3 % (38.7-73.9); Red Blood Count 2.95 MC/CUMM (3.8-5.5); Red Cell Distribution Width 15.9 % (9.3-17.3); White Blood Count 3.6 T/CUMM (4-12)
[2017-05-09 04:59] LABS: Platelet Count 76 T/CUMM (130-400)
[2017-05-09 05:24] LABS: Calcium 7.6 MG/DL (8.5-10.1); Osmolality,Calculated 287.4 MOS/KG (273-304); Potassium 3.8 MMOL/L (3.5-5.1)
[2017-05-09 05:45] LABS: Burr Cells 1+; Ovalocytes 2+; Platelet Estimate Decreased
[2017-05-09] MEDS: INSULIN LISPRO 100 UNIT/ML SUBCUT SCH ×2 (08:40→11:29)
[2017-05-09] MEDS: SPIRONOLACTONE 25 MG TABLET PO SCH (08:44)
[2017-05-09] MEDS: POTASSIUM CHLORIDE 20 MEQ TABLET PO SCH (08:44)
[2017-05-09] MEDS: PANTOPRAZOLE 40 MG TABLET PO SCH (08:44)
[2017-05-09] MEDS: FUROSEMIDE 40 MG TABLET PO SCH (08:44)
--- NOTE | 2017-05-09 15:50 | Discharge Summary ---
Hospital Course - Hospital Course Hospital Course: 57 year old female with history of diabetes mellitus type 2, at least one episode of acute alcoholic pancreatitis, and diagnosis of autoimmune hepatitis in the past. The patient was transferred from [facility] after she presented there with right lower extremity swelling greater than left lower extremity swelling. The patient stated that she has had such unilateral swelling in the past when her hepatitis had been active. The patient has not been having hepatitis symptoms such as jaundice recently. The patient was not on any active treatment for the autoimmune disease. Ultrasound of the lower extremity did not reveal any deep vein thrombosis. The patient has history of known cirrhosis of liver and it was felt that this leg swelling was a manifestation of that condition. He was diuresed gently and her leg swelling has significantly improved. CT scan of the abdomen showed cirrhosis of liver with small ascites and features of portal venous hypertension including esophageal varices and recanalization of the umbilical vein. She also has some nonspecific changes in her cecum and ascending colon as well as some scarring in her lower lobes which all appear chronic. Patient states that she is overall feeling much better her leg swelling has taken significantly improved and she would like to go home. She is being discharged home in an improved and stable condition - Time spent with patient Time with patient DS: Less than 30 minutes Diagnosis - Discharge Diagnosis (1) Lower extremity edema Status: Resolved Discharge Plan - Discharge Data Condition at Discharge: Stable Discharge Diet: advance to your usual diet Activity: resume usual activities as tolerated Hygiene: no restrictions, may shower Weight Bearing at Discharge: full weight bearing Contact your physician if you experience:: fever over 101, Redness or swelling, Shortness of breath, pain uncontrolled by pain medications - Discharge Medications Continue Spironolactone [Aldactone] 25 mg PO BID #60 tablet Furosemide Tab [Lasix Tab] 40 mg PO DAILY #30 tablet - Follow Up or Referral - Forms/Instructions Exam - Constitutional Vitals: Period Temp Pulse Resp BP Sys/Dominguez Pulse Ox Last 24 Hr 98.1 F-99.1 F 60-66 16-20 102-120/48-62 92-98 Exam: General: [No Acute Distress] HEENT: [Normocephalic, atraumatic, Extra ocular movements intact] Neck: [Supple, No JVD] Chest: [Clear to auscultation B/L] CV: [S1 + S2 audible without murmur, gallop or rub] Abd: [soft, NT, Non-distended, BS +] Ext: [Mild right lower extremity edema] Skin: [No purpura, bruising or rash] Rheumatologic: [No Joint deformities] Neurologic: [Strengtg 5/5 all extremities, no gross sensory deficits] Discharge Results Labs on day of discharge: Labs from last 24 hours 05/09/17 05/09/17 05/09/17 11:07 06:43 03:30 WBC RBC Hgb Hct MCV MCH MCHC RDW Plt Count MPV Neut % (Auto) Lymph % (Auto) George % (Auto) Eos % (Auto) Baso % (Auto) Neut # (Auto) Lymph # (Auto) George # (Auto) Eos # (Auto) Baso # (Auto) Immature Gran % Nucleated RBC % Immature Gran # Nucleated RBCs # Platelet Estimate Immature Plt Fraction Anisocytosis Ovalocytes Denver Cells Sodium 147 H Potassium 3.8 Chloride 117 H Carbon Dioxide 25 Anion Gap 8.8 BUN 5 L Creatinine 0.70 GFR Calculation 98 BUN/Creatinine Ratio 7.00 Glucose 76 POC Glucose 116 H 66 L Calculated Osmolality 287.4 Calcium 7.6 L Magnesium 2.0 05/09/17 03:30 WBC 3.6 L RBC 2.95 L Hgb 9.9 L Hct 28.7 L MCV 97.3 MCH 34 MCHC 34.5 RDW 15.9 Plt Count 76 L MPV 11.8 Neut % (Auto) 47.3 Lymph % (Auto) 36.8 George % (Auto) 9.9 Eos % (Auto) 4.7 Baso % (Auto) 0.5 Neut # (Auto) 1.7 Lymph # (Auto) 1.3 L George # (Auto) 0.4 Eos # (Auto) 0.2 Baso # (Auto) 0.0 Immature Gran % 0.8 Nucleated RBC % 0.0 Immature Gran # 0.03 Nucleated RBCs # 0.00 Platelet Estimate Decreased Immature Plt Fraction 0.0 Anisocytosis Ovalocytes 2+ Denver Cells 1+ Sodium Potassium Chloride Carbon Dioxide Anion Gap BUN Creatinine GFR Calculation BUN/Creatinine Ratio Glucose POC Glucose Calculated Osmolality Calcium Magnesium DS: Provider Date of admission: 05/07/17 19:30 Primary care physician: Dante Douglas MD Attending physician on admission: Jorden Rae MD Consults: 05/07/17 23:11 Consult to Pastoral Services [CONS] Routine Comment: Pastoral Screen: Request [employer] Ship Visit Pastoral Screen Source of Request: Patient Discharging clinician: Dorcas Bradley MD
[2017-05-09 17:06] VITALS: BP 111/54
== END 2017-05-09 17:15 | disposition home or self-care (01) | DRG 433 ==
LOC: N.ED 17:30 → SUATTDRO 19:30 → N.EDINP 19:30 → N.3E 21:04
PROVIDERS: ADMIT Internal Medicine; ATTEND Hospitalist

== ENCOUNTER 2019-10-14 20:44 | Observation (INO) ==
[2019-10-14] MEDS ORDERED: NICOTINE 21 MG/24 HR PATCH TRANSDERM PRN (22:18)
[2019-10-14] MEDS ORDERED: ONDANSETRON 4 MG/2 ML VIAL IV PRN (22:18)
[2019-10-15 08:38] LABS: INR 1.3; PT Patient Result 14.6 SECS (9.6-12.2)
[2019-10-15 11:14] VITALS: BP 122/67
[2019-10-15] MEDS ORDERED: DEXTROSE 50% 25 GM/50 ML VIAL IV PRN (12:48)
[2019-10-15] MEDS ORDERED: GLUCAGON 1 MG VIAL IM PRN (12:48)
== END 2019-10-15 15:40 | disposition home or self-care (01) ==
LOC: N.4E
PROVIDERS: ADMIT Internal Medicine; ATTEND Internal Medicine Geriatric Medicine

== ENCOUNTER 2019-10-17 14:48 | Observation (INO) ==
[2019-10-17] MEDS ORDERED: ONDANSETRON 4 MG/2 ML VIAL IV PRN (17:29)
[2019-10-17] MEDS: cefTAZidime 1,000 MG in SYRINGE 1 EACH IV SCH (21:56)
[2019-10-18] MEDS: cefTAZidime 1,000 MG in SYRINGE 1 EACH IV SCH (04:48)
[2019-10-18 05:00] LABS: Basophils % 0.1 % (0.0-0.8); Eosinophils # 0.1 10*3/uL (0.0-0.87); Eosinophils % 0.9 % (0.00-10.9); Hematocrit 36.5 VOL% (35.7-47.0); Hemoglobin 12.2 GM/DL (12.0-16.0); Immature Granulocytes Absolute 0.08 #; Mean Corpuscular HGB Conc 33.4 GM/DL (32-36); Mean Corpuscular Volume 111.6 FL (87-102); Monocytes % 7.6 % (1.7-12.7); Neutrophils % 77.4 % (38.7-73.9); Platelet Count 71 T/CUMM (130-400); Red Blood Count 3.27 MC/CUMM (3.8-5.5)
[2019-10-18 05:08] LABS: INR 1.3; PT Patient Result 14.6 SECS (9.6-12.2)
[2019-10-18 05:18] LABS: Calcium 7.9 MG/DL (8.5-10.1); Osmolality,Calculated 277.5 MOS/KG (273-304)
[2019-10-18 05:24] LABS: Lymphocytes 11 % (20-55); Ovalocytes Slight; Platelet Estimate Decreased; Segmented Neutrophils 83 % (50-85); Total Cells Counted 100
[2019-10-18] MEDS: PANTOPRAZOLE 40 MG TABLET PO SCH (08:11)
[2019-10-18] MEDS ORDERED: ALBUMIN 25% 12.5 GM in PREMIX 1 EACH IV ONE (14:39)
[2019-10-18] MEDS ORDERED: ALBUMIN 25% 12.5 GM/50 ML VIAL IV ONE (14:39)
[2019-10-18 21:02] LABS: Neutrophils,Peritoneal Fluid 90 %; RBC,Peritoneal Fluid 77 T/CUMM
[2019-10-19] MEDS ORDERED: METHOCARBAMOL 750 MG TABLET PO ONE (00:49)
[2019-10-19 02:41] LABS: Basophils % 0.2 % (0.0-0.8); Eosinophils # 0.1 10*3/uL (0.0-0.87); Hematocrit 35.3 VOL% (35.7-47.0); Hemoglobin 12.2 GM/DL (12.0-16.0); Immature Granulocytes % 1.5 %; Immature Granulocytes Absolute 0.09 #; Lymphocytes # 0.9 10*3/uL (1.4-4.0); Lymphocytes % 14.4 % (21.3-54.2); Mean Corpuscular HGB Conc 34.6 GM/DL (32-36); Mean Corpuscular Volume 110.3 FL (87-102); Mean Platelet Volume 14.1 FL (9.6-12.0); Monocytes % 15.6 % (1.7-12.7); Neutrophils % 67.3 % (38.7-73.9); Red Cell Distribution Width 14.9 % (9.3-17.3); White Blood Count 5.9 T/CUMM (4-12)
[2019-10-19 02:43] LABS: Platelet Count 65 T/CUMM (130-400)
[2019-10-19 03:21] LABS: Albumin 1.7 G/DL (3.4-5.0); Bilirubin,Total 2.08 MG/DL (0.2-1.0); Calcium 7.7 MG/DL (8.5-10.1); Osmolality,Calculated 284.4 MOS/KG (273-304); Total Protein 6.7 G/DL (6.4-8.3)
[2019-10-19 04:52] LABS: Band Neutrophils 3 % (0-10); Lymphocytes 13 % (20-55); Segmented Neutrophils 77 % (50-85); Total Cells Counted 100
[2019-10-19 04:53] LABS: Anisocytosis 1+; Ovalocytes 1+; Platelet Estimate Decreased
[2019-10-19] MEDS ORDERED: cefTAZidime 1,000 MG in SYRINGE 1 EACH IV SCH (06:00)
[2019-10-19] MEDS: PANTOPRAZOLE 40 MG TABLET PO SCH (08:29)
[2019-10-19 11:47] VITALS: BP 106/56
== END 2019-10-19 13:35 | disposition home or self-care (01) ==
LOC: N.EDINP 14:48 → N.ED 14:48 → N.4E 18:30
PROVIDERS: ADMIT Internal Medicine Geriatric Medicine; ATTEND Internal Medicine Geriatric Medicine

== ENCOUNTER 2019-10-22 16:01 | Observation (INO) ==
[2019-10-22] MEDS ORDERED: ONDANSETRON 4 MG/2 ML VIAL IV PRN (19:48)
[2019-10-23] MEDS ORDERED: FUROSEMIDE 40 MG TABLET PO PRN (03:38)
[2019-10-23 05:53] LABS: Basophils % 0.3 % (0.0-0.8); Hematocrit 36.1 VOL% (35.7-47.0); Hemoglobin 11.9 GM/DL (12.0-16.0); Immature Granulocytes % 2.4 %; Immature Granulocytes Absolute 0.18 #; Lymphocytes # 0.6 10*3/uL (1.4-4.0); Lymphocytes % 7.8 % (21.3-54.2); Mean Corpuscular Volume 115.7 FL (87-102); Mean Platelet Volume 12.5 FL (9.6-12.0); Monocytes % 12.6 % (1.7-12.7); Neutrophils % 76.9 % (38.7-73.9); Red Blood Count 3.12 MC/CUMM (3.8-5.5); Red Cell Distribution Width 15.4 % (9.3-17.3); White Blood Count 7.4 T/CUMM (4-12)
[2019-10-23 05:58] LABS: Platelet Count 67 T/CUMM (130-400)
[2019-10-23 06:06] LABS: Albumin 1.8 G/DL (3.4-5.0); Bilirubin,Total 3.3 MG/DL (0.2-1.0); Calcium 8.4 MG/DL (8.5-10.1); Osmolality,Calculated 282.7 MOS/KG (273-304); Total Protein 6.7 G/DL (6.4-8.3)
[2019-10-23 06:12] LABS: Burr Cells Slight; Ovalocytes Slight; Platelet Estimate Decreased
[2019-10-23] MEDS: PANTOPRAZOLE 40 MG TABLET PO SCH (08:28)
[2019-10-23] MEDS: VITAMIN E 400 UNIT CAPSULE PO SCH (08:28)
[2019-10-23] MEDS: MULTIVITAMIN (CENTRUM) TABLET PO SCH (08:29)
[2019-10-23] MEDS ORDERED: ALBUMIN 25% 12.5 GM/50 ML VIAL IV ONE (10:15)
[2019-10-23] MEDS ORDERED: ALBUMIN 25% 12.5 GM in PREMIX 1 EACH IV ONE (10:23)
[2019-10-23] MEDS: traMADol 50 MG TABLET PO PRN ×2 (15:55→23:14)
[2019-10-23] MEDS: SPIRONOLACTONE 25 MG TABLET PO SCH (20:32)
[2019-10-24 05:24] LABS: Basophils % 0.4 % (0.0-0.8); Eosinophils % 0.4 % (0.00-10.9); Hematocrit 35.5 VOL% (35.7-47.0); Hemoglobin 11.8 GM/DL (12.0-16.0); Immature Granulocytes % 2.5 %; Immature Granulocytes Absolute 0.12 #; Lymphocytes # 0.5 10*3/uL (1.4-4.0); Lymphocytes % 10.6 % (21.3-54.2); Mean Corpuscular HGB Conc 33.2 GM/DL (32-36); Mean Corpuscular Volume 113.8 FL (87-102); Mean Platelet Volume 13.2 FL (9.6-12.0); Monocytes % 16.1 % (1.7-12.7); Platelet Count 59 T/CUMM (130-400); Red Blood Count 3.12 MC/CUMM (3.8-5.5); Red Cell Distribution Width 15.1 % (9.3-17.3); White Blood Count 4.8 T/CUMM (4-12)
[2019-10-24 05:41] LABS: Calcium 8.3 MG/DL (8.5-10.1); Osmolality,Calculated 285.5 MOS/KG (273-304)
[2019-10-24 05:52] LABS: Burr Cells Slight; Hypochromasia Slight; Lymphocytes 9 % (20-55); Ovalocytes Slight; Platelet Estimate Decreased; Segmented Neutrophils 80 % (50-85); Total Cells Counted 100
[2019-10-24] MEDS: VITAMIN E 400 UNIT CAPSULE PO SCH (09:01)
[2019-10-24] MEDS: PANTOPRAZOLE 40 MG TABLET PO SCH (09:01)
[2019-10-24] MEDS: MULTIVITAMIN (CENTRUM) TABLET PO SCH (09:01)
[2019-10-24] MEDS: SPIRONOLACTONE 25 MG TABLET PO SCH (09:01)
[2019-10-24] MEDS ORDERED: SODIUM POLYSTYRENE SULFATE 15 GM/60 ML BOTTLE PO ONE (09:37)
[2019-10-24 12:40] VITALS: BP 121/60
== END 2019-10-24 15:55 | disposition home or self-care (01) ==
LOC: INTOOBSV 19:03 → N.4E 19:03
PROVIDERS: ADMIT Internal Medicine; ATTEND Family Medicine

== ENCOUNTER 2019-11-08 01:44 | Observation (INO) ==
[2019-11-08] MEDS ORDERED: DOCUSATE SODIUM 100 MG CAPSULE PO PRN (04:31)
[2019-11-08] MEDS ORDERED: ONDANSETRON 4 MG/2 ML VIAL IV PRN (04:31)
[2019-11-08] MEDS ORDERED: SODIUM CHLORIDE 0.9% 1,000 ML IV PRN ×2 (04:40→18:20)
[2019-11-08 05:43] LABS: Eosinophils % 0.2 % (0.00-10.9); Hematocrit 24.4 VOL% (35.7-47.0); Hemoglobin 8.5 GM/DL (12.0-16.0); Immature Granulocytes % 0.7 %; Immature Granulocytes Absolute 0.03 #; Lymphocytes # 0.7 10*3/uL (1.4-4.0); Lymphocytes % 16.6 % (21.3-54.2); Mean Corpuscular HGB Conc 34.8 GM/DL (32-36); Mean Corpuscular Volume 106.6 FL (87-102); Monocytes % 19.5 % (1.7-12.7); Red Blood Count 2.29 MC/CUMM (3.8-5.5); Red Cell Distribution Width 15.5 % (9.3-17.3); White Blood Count 4.1 T/CUMM (4-12)
[2019-11-08 05:48] LABS: Platelet Count 25 T/CUMM (130-400)
[2019-11-08 05:48] LABS: INR 1.6; PT Patient Result 17.8 SECS (9.6-12.2)
[2019-11-08 05:59] LABS: Partial Thromboplastin Time 44.2 SECS (20.8-36.0)
[2019-11-08 06:06] LABS: Burr Cells Slight; Lymphocytes 19 % (20-55); Ovalocytes Slight; Platelet Estimate Decreased; Segmented Neutrophils 69 % (50-85); Total Cells Counted 100
[2019-11-08 06:07] LABS: Hypochromasia Slight
[2019-11-08 07:25] LABS: Bilirubin,Total 2.3 MG/DL (0.2-1.0); Calcium 7.7 MG/DL (8.5-10.1); Osmolality,Calculated 280.4 MOS/KG (273-304); Total Protein 5.9 G/DL (6.4-8.3)
[2019-11-08] MEDS ORDERED: ALBUMIN 5% 12.5 GM in PREMIX 1 EACH IV ONE (09:29)
[2019-11-08] MEDS ORDERED: ALBUMIN 25% 25 GM in PREMIX 1 EACH IV ONE (10:00)
[2019-11-08 10:55] LABS: Apearance,Urine Slightly Hazy (Clear); Bilirubin,Urine Negative (Negative); Blood, Urine Large mg/dL (Negative); Glucose,Urine (UA) Negative (Negative); Hyaline Casts,Urine 97 /LPF (0-3); Ketones,Urine Negative (Negative); Mucus,Urine Occasional /LPF (Occasional); Nitrite,Urine Negative (Negative); Protein,Urine Negative; RBC,Urine 10 /HPF (0-4); Squamous Epithelial Cell,Urine Occasional /HPF (0-10); Urine Color Amber (Yellow); Urine Specific Gravity 1.014 (1.001-1.035); Urine Urobilinogen < 2.0 EU/DL (0.2-1.0); WBC,Urine 25 /HPF (0-6)
[2019-11-08] MEDS: ACETAMINOPHEN 325 MG TABLET PO PRN (23:28)
[2019-11-09 05:22] LABS: Basophils % 0.4 % (0.0-0.8); Eosinophils % 1.6 % (0.00-10.9); Hematocrit 22.3 VOL% (35.7-47.0); Hemoglobin 7.7 GM/DL (12.0-16.0); Immature Granulocytes % 1.2 %; Immature Granulocytes Absolute 0.03 #; Lymphocytes # 0.7 10*3/uL (1.4-4.0); Lymphocytes % 27.1 % (21.3-54.2); Mean Corpuscular HGB Conc 34.5 GM/DL (32-36); Mean Corpuscular Volume 107.2 FL (87-102); Monocytes % 23.1 % (1.7-12.7); Neutrophils % 46.6 % (38.7-73.9); Red Blood Count 2.08 MC/CUMM (3.8-5.5); Red Cell Distribution Width 15.7 % (9.3-17.3); White Blood Count 2.5 T/CUMM (4-12)
[2019-11-09 05:27] LABS: INR 1.7
[2019-11-09 05:34] LABS: Platelet Count 26 T/CUMM (130-400)
[2019-11-09 05:58] LABS: Albumin 2.3 G/DL (3.4-5.0); Bilirubin,Total 2.9 MG/DL (0.2-1.0); Calcium 7.8 MG/DL (8.5-10.1); Osmolality,Calculated 275.5 MOS/KG (273-304); Total Protein 5.7 G/DL (6.4-8.3)
[2019-11-09 06:04] LABS: Elliptocytes Few; Hypochromasia 1+; Lymphocytes 23 % (20-55); Platelet Estimate Decreased; Segmented Neutrophils 62 % (50-85); Total Cells Counted 100
[2019-11-09] MEDS ORDERED: diphenhydrAMINE 50 MG/1 ML VIAL IV ONE (09:44)
[2019-11-09] MEDS ORDERED: ACETAMINOPHEN 325 MG TABLET PO ONE (09:44)
[2019-11-09] MEDS ORDERED: SODIUM CHLORIDE 0.9% 1,000 ML IV PRN ×2 (09:53→11:37)
[2019-11-09] MEDS: SPIRONOLACTONE 50 MG TABLET PO SCH (10:28)
[2019-11-09] MEDS ORDERED: ALBUMIN 25% 12.5 GM in PREMIX 1 EACH IV ONE (13:30)
[2019-11-09] MEDS: FUROSEMIDE 40 MG TABLET PO SCH (16:55)
[2019-11-09] MEDS: ACETAMINOPHEN 325 MG TABLET PO PRN (16:55)
[2019-11-10] MEDS: ACETAMINOPHEN 325 MG TABLET PO PRN (03:17)
[2019-11-10 05:39] LABS: Eosinophils % 2.1 % (0.00-10.9); Hematocrit 22.3 VOL% (35.7-47.0); Hemoglobin 7.6 GM/DL (12.0-16.0); Immature Granulocytes % 0.7 %; Immature Granulocytes Absolute 0.01 #; Lymphocytes # 0.5 10*3/uL (1.4-4.0); Lymphocytes % 33.6 % (21.3-54.2); Mean Corpuscular HGB Conc 34.1 GM/DL (32-36); Mean Corpuscular Volume 108.8 FL (87-102); Mean Platelet Volume 12.9 FL (9.6-12.0); Monocytes % 26.7 % (1.7-12.7); Neutrophils % 36.9 % (38.7-73.9); Platelet Count 51 T/CUMM (130-400); Red Blood Count 2.05 MC/CUMM (3.8-5.5); Red Cell Distribution Width 15.4 % (9.3-17.3); White Blood Count 1.5 T/CUMM (4-12)
[2019-11-10 06:15] LABS: INR 1.3; PT Patient Result 13.9 SECS (9.6-12.2)
[2019-11-10 06:21] LABS: Band Neutrophils 3 % (0-10); Eosinophils 3 % (0-10); Lymphocytes 34 % (20-55); Segmented Neutrophils 40 % (50-85); Total Cells Counted 100
[2019-11-10 06:22] LABS: Anisocytosis 1+; Hypochromasia 1+; Ovalocytes 1+; Platelet Estimate Decreased; Target Cells Few
[2019-11-10] MEDS ORDERED: FUROSEMIDE 20 MG/2 ML VIAL IV PRN (08:29)
[2019-11-10] MEDS ORDERED: SODIUM CHLORIDE 0.9% 1,000 ML IV PRN (08:29)
[2019-11-10] MEDS ORDERED: diphenhydrAMINE 50 MG/1 ML VIAL IV PRN (08:29)
[2019-11-10 09:26] LABS: % Iron Saturation 80.8 % (18-50); Ferritin 513.5 ng/ml (8-252)
[2019-11-10 09:36] LABS: Folate 10.6 NG/ML (5.4-24.0)
[2019-11-10] MEDS: SPIRONOLACTONE 50 MG TABLET PO SCH (09:58)
[2019-11-10] MEDS: FUROSEMIDE 40 MG TABLET PO SCH ×2 (09:58→15:35)
[2019-11-10 16:19] VITALS: BP 97/43
[2019-11-10 16:47] LABS: Hematocrit 27.3 VOL% (35.7-47.0); Hemoglobin 9.2 GM/DL (12.0-16.0)
== END 2019-11-10 18:08 | disposition home health service (06) ==
LOC: SUATTDRO 03:40 → INTOOBSV 03:40 → N.3E 03:40
PROVIDERS: ADMIT Internal Medicine; ATTEND Hospitalist